=== PATIENT | male | born 1980 ===

== ENCOUNTER 2018-02-13 14:08 | Emergency (ER) | payer BC ==
[2018-02-13 14:51] VITALS: BP 154/102
--- NOTE | 2018-02-13 15:17 | UC ---
General HPI - HPI Summary HPI Summary: Last tuesday on 02/07 patient went to [facility] in [place] after having a toothache on left side for several days. States they told him his wisdom teeth are all growing in crooked and need to be removed. HE was started on Clindamycin and taking high dose ibuprofen and aspirin. Initially pain improved. He is not scheduled for surgery until 03/09. Recently pain comes in waves - he refers to as contractions shooting up to his nose and debilitating pain that brings him to his knees. No fevers. 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 No fevers. No N/V. Good PO. PMHx: unremarkable. Meds; reviewed. FMHx: nc - History of Current Complaint Chief Complaint: UCDentalProblem Stated Complaint: MOUTH/TOOTH PAIN Time Seen by Provider: 02/13/18 14:51 Pain Intensity: 8 - Allergy/Home Medications Allergies/Adverse Reactions: Allergies Allergy/AdvReac Type Severity Reaction Status Date / Time No Known Allergies Allergy Verified 02/13/18 14:51 Home Medications: Home Medications Aspirin TAB* [Aspirin 325 MG TAB*] 650 mg PO Q6H PRN 02/13/18 [History Confirmed 02/13/18] Ibuprofen TAB* [Motrin TAB* 800 MG] 800 mg PO Q6H PRN 02/13/18 [History Confirmed 02/13/18] PMH/Surg Hx/FS Hx/Imm Hx - Surgical History Surgical History: Yes Surgery Procedure, Year, and Place: achilles repair X2 - Social History Alcohol Use: Occasionally Substance Use Type: None Smoking Status (MU): Current Some Day Smoker Review of Systems All Other Systems Reviewed And Are Negative: Yes Is Patient Immunocompromised?: No - Comments Additional Review of Systems Comments: per HPI Physical Exam Triage Information Reviewed: Yes Appearance: Well-Appearing Vital Signs: Initial Vital Signs Temp 97.8 F 02/13/18 14:45 Pulse 82 02/13/18 14:45 Resp 16 02/13/18 14:45 BP 154/102 02/13/18 14:45 Pulse Ox 100 02/13/18 14:45 Vital Signs Reviewed: Yes Eyes: Positive: Conjunctiva Clear ENT: Positive: Normal ENT inspection Dental: Positive: Other: - several fillings, mild erythema and edema in posterior upper and lower mouth at site of wisdom teeth. No fluctuance or purulent drainage Neck exam: Normal Neck: Positive: Supple, Nontender Respiratory: Positive: Lungs clear, Normal breath sounds, No respiratory distress Cardiovascular: Positive: RRR, No Murmur Course/Dx - Course Course Of Treatment: This is a 37 yr old with a toothache. Assessment. Toothache (appears to be nerve pain - concern for exposed nerve root) DIscussed he needs to be seen by Dentist for sooner extraction. Plan. FOllow up with [facility] sooner to discuss tooth extraction. Continue another 3 days of Clindamycin for a total of 10 days of antibiotics. Percocet as needed for pain. Continue ibuprofen as needed as directed - take with food - Differential Dx - Multi-Symptom Provider Diagnoses: Toothache Discharge - Sign-Out/Discharge Documenting (check all that apply): Patient Departure All imaging exams completed and their final reports reviewed: No Studies - Discharge Plan Condition: Good Disposition: HOME Prescriptions: Clindamycin Cap(NF) [Clindamycin Cap 300 mg Cap(NF)] 300 mg PO Q6H #12 cap oxyCODONE/Acetamin 5/325 MG* [Percocet 5/325 TAB*] 1 tab PO Q6H PRN #10 tab MDD 4 PRN Reason: Pain Patient Education Materials: Toothache (ED) Referrals: No Primary Care Phys,NOPCP [Primary Care Provider] - Additional Instructions: FOllow up with [facility] sooner to discuss tooth extraction Continue another 3 days of Clindamycin for a total of 10 days of antibiotics Percocet as needed for pain Continue ibuprofen as needed as directed - take with food - Billing Disposition and Condition Condition: GOOD Disposition: Home
== END 2018-02-13 15:20 | disposition home or self-care (01) ==
LOC: UCEAST 14:08
DX: K08.89 Other specified disorders of teeth and supporting structures (principal); F17.210 Nicotine dependence, cigarettes, uncomplicated
CPT/HCPCS: 99202; G0463

== ENCOUNTER 2018-11-06 11:28 | Emergency (ER) | payer BC ==
[2018-11-06 11:34] VITALS: BP 114/74
--- NOTE | 2018-11-06 11:35 | UC ---
Eye Complaint HPI - HPI Summary HPI Summary: 38 yo male presents with RIGHT eye redness and drainage since this morning. He tells me that yesterday he noticed some itching to his right eye. This morning developed redness and has had clear/yellow discharge. He does wear contacts, but has not been wearing these the last 3 days. Denies injury to the eye or FB. No vision changes. - History of Current Complaint Chief Complaint: UCEye Stated Complaint: EYE COMPLAINT Time Seen by Provider: 11/06/18 11:35 Hx Obtained From: Patient Onset/Duration: Sudden Onset Severity Initially: Mild Severity Currently: Mild Pain Intensity: 2 - Allergies/Home Medications Allergies/Adverse Reactions: Allergies Allergy/AdvReac Type Severity Reaction Status Date / Time No Known Allergies Allergy Verified 11/06/18 11:34 PMH/Surg Hx/FS Hx/Imm Hx - Additional Past Medical History Additional PMH: None - Surgical History Surgical History: Yes Surgery Procedure, Year, and Place: achilles repair X2 - Social History Lives: With Family Alcohol Use: Occasionally Substance Use Type: None Smoking Status (MU): Current Some Day Smoker Review of Systems All Other Systems Reviewed And Are Negative: Yes Constitutional: Positive: Negative Skin: Positive: Negative Eyes: Positive: Drainage, Eye Redness ENT: Positive: Negative Respiratory: Positive: Negative Cardiovascular: Positive: Negative Neurovascular: Positive: Negative Neurological: Positive: Negative Psychological: Positive: Negative Physical Exam - Summary Physical Exam Summary: GENERAL: WDWN. No pain distress. SKIN: No rashes, sores, lesions, or open wounds. HEENT: Head: AT/NC Eyes: EOM intact. PERRLA. RIGHT EYE: Moderate scleral injection. Conjunctiva with Moderate erythema and inflammation. Mild clear/yellow discharge. RIGHT EYE: Conjunctiva clear without inflammation or discharge. No FBs appreciated Nose: NTTP maxillary and frontal sinus. NECK: Supple. Nontender. No lymphadenopathy. CHEST: No accessory muscle use. Breathing comfortably and in no distress. CV: Pulses intact. Cap refill <2seconds NEURO: Alert. PSYCH: Age appropriate behavior. Triage Information Reviewed: Yes Vital Signs: Initial Vital Signs Temp 98 F 11/06/18 11:32 Pulse 58 11/06/18 11:32 Resp 16 11/06/18 11:32 BP 114/74 11/06/18 11:32 Pulse Ox 100 11/06/18 11:32 Vital Signs Reviewed: Yes Eye Complaint Course/Dx - Course Course Of Treatment: Right eye conjunctivitis - Differential Dx/Diagnosis Provider Diagnosis: Conjunctivitis Discharge - Sign-Out/Discharge Documenting (check all that apply): Patient Departure All imaging exams completed and their final reports reviewed: No Studies - Discharge Plan Condition: Stable Disposition: HOME Prescriptions: Ofloxacin 0.3% (Eye Drop) [Ocuflox OPTH 0.3% (Eye Drop)] 1 - 2 drop RIGHT EYE QID #1 btl Patient Education Materials: Conjunctivitis (ED) Referrals: No Primary Care Phys,NOPCP [Primary Care Provider] - Additional Instructions: If you develop a fever, shortness of breath, chest pain, new or worsening symptoms - please call your PCP or go to the ED immediately. Do not wear your contacts until your eye is completely resolved. I recommend that you throw out your current contacts and open a new pair when you do resume using them - Billing Disposition and Condition Condition: STABLE Disposition: Home
== END 2018-11-06 11:50 | disposition home or self-care (01) ==
LOC: UCEAST 11:28
DX: H10.9 Unspecified conjunctivitis (principal); F17.210 Nicotine dependence, cigarettes, uncomplicated
CPT/HCPCS: 99212; G0463